=== PATIENT | female | born 1935 | race Caucasian/White ===

== ENCOUNTER → 2016-11-06 | Outpatient (CLI) | payer OTHER | LOC: MC.RAD 10:11 | DX: Z12.31 Encounter for screening mammogram for malignant neoplasm of breast (principal) ==

== ENCOUNTER → 2018-02-13 | Outpatient (CLI) | payer MEDICARE | LOC: MC.RAD 12-26 13:20 | DX: Z12.31 Encounter for screening mammogram for malignant neoplasm of breast (principal) ==

== ENCOUNTER → 2019-03-10 | Outpatient (CLI) | payer MEDICARE | LOC: MC.RAD 10:04 | DX: Z12.31 Encounter for screening mammogram for malignant neoplasm of breast (principal) ==

== ENCOUNTER → 2020-05-04 | Outpatient (CLI) | payer MEDICARE | LOC: MC.RAD 03-30 09:00 | DX: Z12.31 Encounter for screening mammogram for malignant neoplasm of breast (principal) ==

== ENCOUNTER → 2021-05-26 | Outpatient (CLI) | payer MEDICARE | LOC: MC.RAD 10:30 | DX: Z12.31 Encounter for screening mammogram for malignant neoplasm of breast (principal) ==

== ENCOUNTER → 2022-07-05 | Outpatient (CLI) | payer MEDICARE | LOC: MC.RAD 07:57 | DX: Z12.31 Encounter for screening mammogram for malignant neoplasm of breast (principal) ==

== ENCOUNTER → 2023-07-10 | Outpatient (CLI) | payer MEDICARE | LOC: MC.RAD 08:46 | DX: Z12.31 Encounter for screening mammogram for malignant neoplasm of breast (principal) ==